=== PATIENT | female | born 1965 | race Two or more races ===

== ENCOUNTER 2023-01-14 18:52 | Emergency (ER) | payer OTHER ==
[~2023-01-14] VITALS: Ht 160 cm; Wt 45.4 kg
[2023-01-14] MEDS ORDERED: KAPSPARGO SPRIN25 MG PO (19:18)
[2023-01-14] MEDS ORDERED: MYCOPHENOLATE500 M1 IV (19:18)
[2023-01-14] MEDS ORDERED: MILLIPRED5 MG PO (19:18)
[2023-01-14] MEDS ORDERED: HEMATRON (19:19)
[2023-01-14] MEDS ORDERED: APETIGEN P12.5 MG/15 PO (19:19)
[2023-01-14] MEDS ORDERED: APETIGEN-PLUS1 EACH PO (23:15)
[2023-01-14] MEDS ORDERED: PEPCID AC20 MG PO (23:15)
[2023-01-14] MEDS ORDERED: ZOFRAN8 MG PO (23:15)
== END 2023-01-14 23:53 | disposition home or self-care (01) ==
LOC: ER 18:52
DX: R10.9 Unspecified abdominal pain (principal); I10 Essential (primary) hypertension; M06.8A Other specified rheumatoid arthritis, other specified site; E86.0 Dehydration; Z88.2 Allergy status to sulfonamides

== ENCOUNTER 2025-03-18 07:04 | Outpatient (CLI) | payer OTHER ==
[~2025-03-18 07:04] MED LIST: APETIGEN P12.5 MG/15 PO; APETIGEN-PLUS1 EACH PO; HEMATRON; KAPSPARGO SPRIN25 MG PO; MILLIPRED5 MG PO; MYCOPHENOLATE500 M1 IV; PEPCID AC20 MG PO; ZOFRAN8 MG PO
== END 2025-03-18 07:14 | disposition home or self-care (01) ==
LOC: SONOGRAMA 07:04
PROVIDERS: ATTEND Internal Medicine Gastroenterology
DX: K76.0 Fatty (change of) liver, not elsewhere classified (principal)

== ENCOUNTER 2025-03-18 08:21 | Emergency (ER) | payer OTHER ==
[~2025-03-18] VITALS: Ht 160 cm; Wt 55.3 kg
[2025-03-18] MEDS ORDERED: ACETAMINOPHEN 500 MG GEL..CAP PO ONE ×2 (09:00→09:27)
[2025-03-18 10:16] LABS: BASO % 0.4 % (0.1-1.2); EOS # 0.03 (0.04-0.54); EOS % 0.4 % (0.7-7.0); LYMPH # 1.43 (1.18-3.74); LYMPH % 20.3 % (19.3-53.1); MEAN PLATELET VOLUME 9.60 fl (9.4-12.4); MONO # 1.09 (0.24-0.82); NEUT # 4.36 (1.56-6.13); NEUT % 62.1 % (34.0-71.1); RED CELL DISTRIBUTION WIDTH 12.7 % (11.6-14.4)
[2025-03-18 10:19] LABS: MONO % 15.5 % (4.7-12.5)
[2025-03-18 11:12] LABS: BUN CREA RATIO 32.0 (7.0-25.0); CREATININE SERUM 1.08 mg/dL (0.55-1.02); GFR 52.29; GLUCOSE FASTING 84.0 mg/dL (65-100); OSMOLALITY SERUM 292.0 MOSM/KG (275-295)
== END 2025-03-18 12:14 | disposition home or self-care (01) ==
LOC: ER 08:22
PROVIDERS: General Practice
DX: I80.9 Phlebitis and thrombophlebitis of unspecified site (principal); E03.8 Other specified hypothyroidism; I10 Essential (primary) hypertension; Z88.2 Allergy status to sulfonamides